=== PATIENT | female | born 1990 | race Hispanic/Latino ===

== ENCOUNTER 2017-12-10 17:45 | Emergency (ER) | payer BC, MEDICAID ==
[~2017-12-10 17:45] MED LIST: MO8B PO; PNV11TAB5 PO
[2017-12-10 18:12] LABS: APPEARANCE,URINE Cloudy (CLEAR); BILIRUBIN,URINE Small (NEGATIVE); COLOR,URINE Dark Yellow (YELLOW); GLUCOSE, URINE (UA) Negative (NEGATIVE); KETONES,URINE Negative (NEGATIVE); LEUKOCYTE ESTERASE ,URINE Moderate (NEGATIVE); NITRATE,URINE Negative (NEGATIVE); OCCULT BLOOD,URINE Negative (NEGATIVE); PROTEIN,URINE Negative (NEGATIVE)
[2017-12-10 18:13] LABS: HCG,QUAL RESULT NEGATIVE (NEGATIVE)
[2017-12-10 18:27] LABS: RBC,URINE None Seen /HPF (0-1)
[2017-12-10 18:28] LABS: BACTERIA,URINE Few /HPF (None Seen); MUCUS,URINE Few LPF (None Seen)
[2017-12-10] MEDS ORDERED: SODIUM CHLORIDE 0.9% 1000ML 1,000 ML IV ONE (18:39)
[2017-12-10] MEDS ORDERED: ONDANSETRON HCL 4 MG/2 ML VIAL ONE (18:39)
[2017-12-10 18:42] LABS: BASOPHILS % (AUTO) 1.7 % (0.0-5.0); EOSINOPHILS % (AUTO) 0.5 % (0.0-8.0); HEMATOCRIT 37.4 % (36-48); LYMPHOCYTES % (AUTO) 22.8 % (21.0-51.0); MEAN CORPUSCULAR HEMOGLOBIN 26.1 pg (27.0-33.0); MEAN CORPUSCULAR VOLUME 79.2 fL (79-99); MONOCYTES % (AUTO) 12.8 % (3.0-13.0); NEUTROPHILS % (AUTO) 62.2 % (40.0-77.0); NUCLEATED RED BLOOD CELLS 0.1 % (0.0-0.19); PLATELET COUNT (AUTO) 193 K/uL (130-400); RED BLOOD CELL COUNT(AUTO) 4.72 MIL/uL (4.00-5.50); RED CELL DISTRIBUTION WIDTH 13.5 % (11.0-15.5)
[2017-12-10 18:48] LABS: CREATININE 0.8 mg/dL (0.5-1.5); POTASSIUM 3.1 mmol/L (3.5-5.1)
[2017-12-10] MEDS ORDERED: POTASSIUM BICARB/CIT AC 25 MEQ TABLET.EFF ONE (18:59)
== END 2017-12-10 19:34 | disposition home or self-care (01) ==
LOC: EDH 17:45
DX: K52.9 Noninfective gastroenteritis and colitis, unspecified (principal); E87.6 Hypokalemia; Z90.49 Acquired absence of other specified parts of digestive tract; Z79.3 Long term (current) use of hormonal contraceptives; Z79.899 Other long term (current) drug therapy
CPT/HCPCS: 36415; 80048; 81001; 81025; 85025; 87088; 87804 ×2; 96361; 96374; 99284; J2405; J7030

== ENCOUNTER 2018-11-27 06:39 | Day surgery (SDC) | payer MEDICAID, SELFPAY ==
[2018-11-23 10:44] LABS: BASOPHILS % (AUTO) 0.2 % (0.0-5.0); EOSINOPHILS % (AUTO) 0.6 % (0.0-8.0); HEMATOCRIT 34.2 % (36-48); LYMPHOCYTES % (AUTO) 19.4 % (21.0-51.0); MEAN CORPUSCULAR HGB CONC 33.8 g/dL (32.0-36.0); MEAN CORPUSCULAR VOLUME 82.8 fL (79-99); MONOCYTES % (AUTO) 6.1 % (3.0-13.0); NEUTROPHILS % (AUTO) 73.7 % (40.0-77.0); PLATELET COUNT (AUTO) 229 K/uL (130-400); RED BLOOD CELL COUNT(AUTO) 4.13 MIL/uL (4.00-5.50); RED CELL DISTRIBUTION WIDTH 13.8 % (11.0-15.5); WHITE BLOOD COUNT (AUTO) 7.7 K/uL (4.8-10.8)
[2018-11-23 11:21] VITALS: BP 110/48
[~2018-11-27] VITALS: Ht 160 cm; Wt 56.2 kg
[~2018-11-27 06:39] MED LIST changes: -MO8B PO
[2018-11-27 07:17] VITALS: BP 110/63
[2018-11-27] MEDS ORDERED: LACTATED RINGERS 1000ML 1,000 ML IV ONE (07:24)
[2018-11-27] MEDS ORDERED: ONDANSETRON HCL 4 MG/2 ML VIAL ONE (08:34)
[2018-11-27 10:40] VITALS: BP 104/62
--- NOTE | 2018-11-27 10:40 | NUR ---
PT. TSF FROM OB BY STRETCHER REPORT RECEIVED BY LÓPEZ OSCAR, ALSO RN STATED THAT WAS ASSIST AND HR WAS 150 AND DID NOT TO BE CHECKED. PER REPORT BY LÓPEZ OSCAR PT. WILL BE ABLE TO LEAVE AFTER WALKING, VOIDING AND EATING WITHOUT N/V.
[2018-11-27 11:00] VITALS: BP 107/73
--- NOTE | 2018-11-27 12:13 | NUR ---
PT WAS ABLE TO WALK TO BATHROOM, BUT UNABLE TO VOID AT THIS TIME, MORE FLUIDS ARE BEING GIVEN ORALLY.
--- NOTE | 2018-11-27 12:45 | NUR ---
pt was able to void and walk to bathroom. no complication with ambulation and voiding.
--- NOTE | 2018-11-27 13:00 | NUR ---
pt. left via wheelchair with mom in pvt car. d/c instruction given to mom and f/u appt. scheduled 12-04-18 @ 3:15 m.
== END 2018-11-27 13:00 ==
LOC: DAH 06:39
PROVIDERS: ATTEND Specialist
DX: O34.32 Maternal care for cervical incompetence, second trimester (principal); Z90.49 Acquired absence of other specified parts of digestive tract; Z3A.14 14 weeks gestation of pregnancy
CPT/HCPCS: 36415; 59320; 85025; A4215; A4221; A4222; A4223; A4606; J2405; J7120 ×2

== ENCOUNTER 2018-12-28 16:29 | Emergency (ER) | payer BC, MEDICAID ==
[2018-12-28] MEDS ORDERED: SODIUM CHLORIDE 0.9% 1000ML 1,000 ML IV ONE (17:10)
[2018-12-28] MEDS ORDERED: ONDANSETRON HCL 4 MG/2 ML VIAL ONE (17:10)
[2018-12-28 17:26] LABS: BASOPHILS % (AUTO) 0.1 % (0.0-5.0); EOSINOPHILS % (AUTO) 0.2 % (0.0-8.0); HEMATOCRIT 36.5 % (36-48); LYMPHOCYTES % (AUTO) 6.3 % (21.0-51.0); MEAN CORPUSCULAR HEMOGLOBIN 27.6 pg (27.0-33.0); MEAN CORPUSCULAR HGB CONC 33.8 g/dL (32.0-36.0); MEAN CORPUSCULAR VOLUME 81.5 fL (79-99); MONOCYTES % (AUTO) 3.4 % (3.0-13.0); PLATELET COUNT (AUTO) 233 K/uL (130-400); RED BLOOD CELL COUNT(AUTO) 4.48 MIL/uL (4.00-5.50); RED CELL DISTRIBUTION WIDTH 12.8 % (11.0-15.5); WHITE BLOOD COUNT (AUTO) 11.4 K/uL (4.8-10.8)
[2018-12-28 17:35] LABS: CREATININE 0.5 mg/dL (0.5-1.5); POTASSIUM 3.4 mmol/L (3.5-5.1)
[2018-12-28 17:39] LABS: ALBUMIN 2.9 g/dL (3.5-5.0); BILIRUBIN,TOTAL 0.5 mg/dL (0.2-1.0)
[2018-12-28] MEDS ORDERED: ACETAMINOPHEN 325 MG TAB ONE (18:49)
[2018-12-28 19:09] LABS: APPEARANCE,URINE Cloudy (CLEAR); BILIRUBIN,URINE Negative (NEGATIVE); COLOR,URINE Yellow (YELLOW); GLUCOSE, URINE (UA) Negative (NEGATIVE); KETONES,URINE 40 mg/dL (NEGATIVE); LEUKOCYTE ESTERASE ,URINE Small (NEGATIVE); NITRATE,URINE Negative (NEGATIVE); OCCULT BLOOD,URINE Negative (NEGATIVE); PH,URINE 6.5 (5.0-8.0); PROTEIN,URINE Negative (NEGATIVE); UROBILINOGEN,URINE 0.2 mg/dL (0.2-1.0)
[2018-12-28 19:31] LABS: RBC,URINE 0-1 /HPF (0-1)
[2018-12-28 19:32] LABS: BACTERIA,URINE Few /HPF (None Seen); MUCUS,URINE Rare LPF (None Seen); SQUAMOUS EPITHELIAL CELL,UR Moderate /HPF (0-2)
== END 2018-12-28 19:24 | disposition home or self-care (01) ==
LOC: EDH 16:29
DX: O21.8 Other vomiting complicating pregnancy (principal); O26.891 Other specified pregnancy related conditions, first trimester; R19.7 Diarrhea, unspecified; Z3A.18 18 weeks gestation of pregnancy
CPT/HCPCS: 36415; 80053; 81001; 85025; 96361; 96374; 99284; J2405; J7030

== ENCOUNTER 2019-03-09 15:23 | Observation (INO) | payer MEDICAID ==
[~2019-03-09] VITALS: Ht 160 cm; Wt 61.2 kg
[2019-03-09 15:52] VITALS: BP 136/64
[2019-03-09] MEDS ORDERED: ACETAMINOPHEN 325 MG TAB PO PRN (16:00)
[2019-03-09] MEDS ORDERED: PHARMACY COMMUNICATION MISC SCH (16:00)
--- NOTE | 2019-03-09 16:45 | NUR ---
DR. RECIO ROUNDING ON PATIENT. POC DISCUSSED WITH PATIENT. QUESTIONS INVITED AND ANSWERED, PATIENT VERBALIZED UNDERSTANDING.
[2019-03-09] MEDS ORDERED: CELESTONE SOLUSPAN 6 MG/ML 5ML VIAL IM SCH (17:00)
[2019-03-09 19:26] VITALS: BP 119/59
[2019-03-09 23:38] VITALS: BP 102/59
[2019-03-10 04:35] VITALS: BP 116/52
[2019-03-10 07:09] VITALS: BP 100/61
[2019-03-10] MEDS ORDERED: CELESTONE SOLUSPAN 6 MG/ML 5ML VIAL IM SCH ×2 (07:30→17:00)
--- NOTE | 2019-03-10 08:20 | NUR ---
ASSESSMENT: RECEIVED RESTING IN BED, EXPLAINED POC AND UNDERSTANDING VERBALIZED. CALL SIDDIQI AT HER SIDE. DEWAYNE ABD PAIN OR CTX'S. ABD PALPATED SOFT. REPORTS POSITIVE MOVEMENT.
--- NOTE | 2019-03-10 08:30 | NUR ---
FHT'S: FHT'S 158 AND STRONG AND REGULAR.
--- NOTE | 2019-03-10 10:30 | NUR ---
ASSESSMENT: DR RECIO ASSESSED PT AND DISCUSSED POC FOR DISCHARGE HOME THIS PM POST 2ND DOSE OF CELESTONE ADM, PT VERBALIZES UNDERSTANDING.
[2019-03-10 11:32] VITALS: BP 110/56
[2019-03-10 16:13] VITALS: BP 114/63
--- NOTE | 2019-03-10 16:14 | NUR ---
REST: RESTING IN BED, DENIES ANY PAIN OR DISCOMFORT.
--- NOTE | 2019-03-10 17:09 | NUR ---
STEROIDS: EXPLAINED MEDICATION TO PT AND UNDERSTANDING VERBALIZED, ADM CELESTONE 12MG IM TO DEBBY GUILLORY.
--- NOTE | 2019-03-10 17:16 | NUR ---
DISCHARGE: DISCHARGE INSTRUCTIONS GIVEN TO PT ON SELF CARE AT 28.5 WEEKS GESTATION, INSTRUCTED ON S&S OF PTL , INCOMPETENT CERVIX, TO FOLLOW UP WITH DR RECIO ON THURSDAY 03/23 IN THE PM OR SOONER IF NEEDED. UNDERSTANDING VERBALIZED AND COPIES OF ALL INSTRUCTIONS GIVEN TO PT.
--- NOTE | 2019-03-10 17:17 | NUR ---
DISCHARGE: INSTRUCTED ON KICK COUNTS AND TO REPORT DECREASED MOVEMENT TO HER DR AND MAINTAIN PELVIC REST. UNDERSTANDING VERBALIZED.
--- NOTE | 2019-03-10 17:30 | NUR ---
DISCHARGE: DISCHARGED HOME TO PRIVATE CAR WITH ALL BELONGINGS.
== END 2019-03-10 17:30 | disposition home or self-care (01) ==
LOC: WSH 15:23
PROVIDERS: ADMIT Specialist; ATTEND Specialist
DX: O26.892 Other specified pregnancy related conditions, second trimester (principal); Z3A.27 27 weeks gestation of pregnancy
CPT/HCPCS: 96372 ×2; G0378 ×25; J0702

== ENCOUNTER 2019-04-27 17:53 | Observation (INO) | payer MEDICAID ==
[~2019-04-27] VITALS: Ht 160 cm; Wt 61.7 kg
[2019-04-27] MEDS ORDERED: CEFTRIAXONE SODIUM 1 GM IVP ONE (19:00)
[2019-04-27] MEDS ORDERED: LACTATED RINGERS 1000ML 1,000 ML IV SCH (19:00)
[2019-04-27] MEDS ORDERED: LACTATED RINGERS 1000ML 1,000 ML IV ONE (19:01)
[2019-04-27 19:58] LABS: APPEARANCE,URINE Clear (CLEAR); BILIRUBIN,URINE Negative (NEGATIVE); COLOR,URINE Yellow (YELLOW); GLUCOSE, URINE (UA) Negative (NEGATIVE); KETONES,URINE Negative (NEGATIVE); LEUKOCYTE ESTERASE ,URINE Small (NEGATIVE); NITRATE,URINE Negative (NEGATIVE); OCCULT BLOOD,URINE Negative (NEGATIVE); PH,URINE 7.5 (5.0-8.0); PROTEIN,URINE Negative (NEGATIVE)
[2019-04-27 20:16] LABS: BACTERIA,URINE Few /HPF (None Seen); RBC,URINE 0-1 /HPF (0-1)
[2019-04-27 20:17] LABS: SQUAMOUS EPITHELIAL CELL,UR Moderate /HPF (0-2)
[2019-04-27] MEDS ORDERED: CEFTRIAXONE SODIUM 1 GM ONE (20:35)
[2019-04-27] MEDS: TERBUTALINE SULFATE VIAL 1MG/ML SQ PRN ×2 (21:47→22:55)
== END 2019-04-27 23:55 | disposition home or self-care (01) ==
LOC: EDH 17:53 → LDH 18:13
PROVIDERS: ADMIT Specialist; ATTEND Specialist
DX: O62.9 Abnormality of forces of labor, unspecified (principal); O26.893 Other specified pregnancy related conditions, third trimester; R51 Headache; Z90.49 Acquired absence of other specified parts of digestive tract; Z3A.35 35 weeks gestation of pregnancy
CPT/HCPCS: 81001; 96372 ×2; 96374; 99284; G0378 ×5; J0696; J3105 ×2; J7120 ×2; 96360; 96361

== ENCOUNTER 2019-07-05 06:03 | Observation (INO) | payer MEDICAID ==
[2019-07-04 15:22] LABS: BASOPHILS % (AUTO) 0.4 % (0.0-5.0); EOSINOPHILS % (AUTO) 1.1 % (0.0-8.0); HEMATOCRIT 37.6 % (36-48); LYMPHOCYTES % (AUTO) 33.7 % (21.0-51.0); MEAN CORPUSCULAR HGB CONC 30.3 g/dL (32.0-36.0); MEAN CORPUSCULAR VOLUME 79.2 fL (79-99); MONOCYTES % (AUTO) 6.3 % (3.0-13.0); NEUTROPHILS % (AUTO) 58.5 % (40.0-77.0); PLATELET COUNT (AUTO) 282 K/uL (130-400); RED BLOOD CELL COUNT(AUTO) 4.75 MIL/uL (4.00-5.50); RED CELL DISTRIBUTION WIDTH 17.8 % (11.0-15.5); WHITE BLOOD COUNT (AUTO) 5.2 K/uL (4.8-10.8)
[2019-07-04 18:02] VITALS: BP 116/58
[2019-07-05] VITALS (22 sets, daily range): BP systolic 90–149; BP diastolic 61–94
[~2019-07-05] VITALS: Ht 160 cm; Wt 60.2 kg
[~2019-07-05 06:03] MED LIST changes: +CEFAZOLIN SODIUM 1 GM VIAL IVP SCH; +ETHI1TAB26 PO; -PNV11TAB5 PO
[2019-07-05] MEDS ORDERED: VASOPRESSIN 20 UNITS/ML 1ML VIAL ONE (07:13)
[2019-07-05] MEDS ORDERED: SUCCINYLCHOLINE CHLORIDE 20 MG/ML 10 ML VIAL ONE (07:22)
[2019-07-05] MEDS ORDERED: LIDOCAINE PF 2% 5ML ABBOJECT ONE (07:22)
[2019-07-05] MEDS ORDERED: PROPOFOL 10 MG/ML 20ML VIAL IV ONE (07:23)
[2019-07-05] MEDS ORDERED: MIDAZOLAM HCL 1 MG/ML 2ML VIAL ONE (07:23)
[2019-07-05] MEDS ORDERED: ROCURONIUM 10MG/1ML SYR 10 MG/ML ML ONE (07:23)
[2019-07-05] MEDS ORDERED: SUCCINYLCHOLINE 200MG/10ML SYR ONE (07:24)
[2019-07-05] MEDS ORDERED: FENTANYL CITRATE PF 50 MCG/1 ML 2ML VIAL ONE ×3 (07:24→09:01)
[2019-07-05] MEDS ORDERED: ONDANSETRON HCL 4 MG/2 ML VIAL ONE ×2 (07:25→18:44)
[2019-07-05] MEDS: LACTATED RINGERS 1000ML 1,000 ML IV SCH ×2 (07:26→09:35)
[2019-07-05] MEDS ORDERED: MAGNESIUM SULFATE 1 GM/2 ML VIAL ONE (07:29)
[2019-07-05] MEDS ORDERED: KETAMINE 50MG/ML SYRINGE 50 MG/ML DISP.SYRIN IV ONE (07:30)
[2019-07-05] MEDS ORDERED: GLYCOPYRROLATE 1 MG/5 ML SYRINGE ONE (09:12)
[2019-07-05] MEDS ORDERED: NEOSTIGMINE 5MG/5ML SYR IV ONE (09:13)
[2019-07-05] MEDS ORDERED: ESTROGENS,CONJUGATED 0.625 MG/GM 42.5 GM VAG CRM VG ONE (09:14)
[2019-07-05] MEDS ORDERED: HYDROMORPHONE 1 MG/1 ML AMP ONE ×2 (09:51→10:18)
[2019-07-05] MEDS ORDERED: PROMETHAZINE HCL 25 MG/ML 1ML AMPULE IM PRN ×2 (10:00)
[2019-07-05] MEDS ORDERED: BISACODYL 10 MG SUPP.RECT RC PRN (10:00)
[2019-07-05] MEDS ORDERED: MEPERIDINE-PF 75 MG/ML SYG IM PRN (10:00)
[2019-07-05] MEDS ORDERED: SIMETHICONE 80 MG TAB.CHEW PO PRN (10:00)
[2019-07-05] MEDS ORDERED: IBUPROFEN 600 MG TABLET PO PRN (10:00)
[2019-07-05] MEDS ORDERED: ACETAMINOPHEN EXTRA STRENGTH 500 MG TABLET ONE (10:19)
[2019-07-05] MEDS ORDERED: MEPERIDINE-PF 100 MG/ML SYG ONE (12:32)
[2019-07-05] MEDS: DEXTROSE 5 %-0.45 % NACL 1,000 ML IV PRN (18:24)
[2019-07-05] MEDS: ACETAMINOPHEN-CODEINE 300/30MG TAB PO PRN ×2 (18:31→23:55)
[2019-07-05] MEDS ORDERED: ONDANSETRON HCL 4 MG/2 ML VIAL IVP PRN (18:45)
[2019-07-05] MEDS: DOCUSATE SODIUM 100 MG CAP PO PRN (21:17)
[2019-07-06] MEDS: DEXTROSE 5 %-0.45 % NACL 1,000 ML IV PRN (02:21)
[2019-07-06 03:53] VITALS: BP 104/59
[2019-07-06 06:47] LABS: HEMATOCRIT 32.9 % (36-48); MEAN CORPUSCULAR HEMOGLOBIN 24.2 pg (27.0-33.0); MEAN CORPUSCULAR HGB CONC 30.7 g/dL (32.0-36.0); MEAN CORPUSCULAR VOLUME 78.9 fL (79-99); RED BLOOD CELL COUNT(AUTO) 4.17 MIL/uL (4.00-5.50); RED CELL DISTRIBUTION WIDTH 17.6 % (11.0-15.5); WHITE BLOOD COUNT (AUTO) 11.4 K/uL (4.8-10.8)
[2019-07-06 07:42] VITALS: BP 119/66
--- NOTE | 2019-07-06 08:00 | NUR ---
DR. RECIO ROUNDED AND ORDERS GIVEN FOR REMOVAL OF GAVIN CATHETER AND ONCE PATIENT VOIDED ON HER OWN, SHE MAY BE DISCHARGED. VAGINAL PACKING WAS REMOVED AND GAVIN WAS REMOVED AFTER DR. RECIO REMOVED PACKING. PATIENT TOLERATED ACTIVITY WELL.
[2019-07-06] MEDS ORDERED: ACETAMINOPHEN-CODEINE 300/30MG TAB PO PRN (08:15)
[2019-07-06] MEDS ORDERED: IBUPROFEN 800 MG TAB PO PRN (08:15)
[2019-07-06] MEDS ORDERED: HYDROCODONE/ACETAMINOPHEN 5/325 MG TAB PO PRN (08:15)
[2019-07-06] MEDS ORDERED: SIMETHICONE 80 MG TAB.CHEW PO PRN (08:45)
[2019-07-06] MEDS: DOCUSATE SODIUM 100 MG CAP PO PRN (09:06)
[2019-07-06 11:30] VITALS: BP 122/65
--- NOTE | 2019-07-06 11:30 | NUR ---
UP AND VOIDED 300CC OF CLEAR YELLOW URINE WITH TINGED OF BLOOD. PATIENT HAD PIV REMOVED AND STATES PASSING GAS AND BEING ABLE TO RELAX AFTER MEDICATED WITH TYLENOL #3. PATIENT WAS MEDICATED WITH T3 AFTER AMBULATING IN HALLWAY THIS A.M.
--- NOTE | 2019-07-06 12:45 | NUR ---
DISCHARGE INSTRUCTIONS GIVEN AND SCRIPT FOR HOME PAIN MANAGEMENT GIVEN. VERBALIZES FEELING MUCH BETTER AFTER MEDICATED WITH TYLENOL #3.
== END 2019-07-06 14:00 | disposition home or self-care (01) ==
LOC: DAH 06:03 → WSH 06:04 → DAH 06:04 → EDSTATUS 07:30 → WSH 10:35
PROVIDERS: ADMIT Specialist; ATTEND Specialist
DX: N81.9 Female genital prolapse, unspecified (principal); N39.3 Stress incontinence (female) (male); Z90.49 Acquired absence of other specified parts of digestive tract
CPT/HCPCS: 36415 ×2; 57260; 58260; 84703; 85025; 85027; 86850; 86900; 86901; 88305; 88307; 88313; 88341; 96372; 88342; A4215; A4221; A4222; A4223; A4344; A4351; A4510; A4600; A4663; A4930; A6260; G0378 ×14; J0330 ×2; J0690; J1170 ×2; J2001; J2175; J2250; J2405 ×2; J2550; J2704; J2710; J3010 ×3; J3475; J3490 ×3; J7120 ×2